=== PATIENT | female | born 1935 | race Caucasian/White ===

== ENCOUNTER 2016-09-05 08:38 | Day surgery (SDC) | payer MEDICARE ==
[~2016-09-05] VITALS: Ht 149.9 cm; Wt 55.0 kg
[2016-09-05 11:58] LABS: BASOPHILS 0.5 % (0-2); EOSINOPHILS 0.7 % (0-7); HEMATOCRIT 42.5 % (36.0-48.0); HEMOGLOBIN 13.9 g/dL (12-16); IMMATURE GRANULOCYTES 0.2 % (0-5); LYMPHOCYTES 36.7 % (15-50); MCH 29.6 pg (26.0-34.0); MCHC 32.7 g/dL (31.0-37.0); MCV 90.4 fL (80.0-100.0); MEAN PLATELET VOLUME 9.2 fL (7.4-10.4); MONOCYTES 9.5 % (2-11); NEUTROPHILS 52.4 % (40-80); PLATELET COUNT 189 10x3/uL (130-400); RDW 14.5 % (11.5-14.5); WBC 4.1 10x3/uL (4.8-10.8)
[2016-09-05 12:06] VITALS: BP 112/58; Ht 149.9 cm; Wt 55.0 kg
[2016-09-05 12:10] LABS: CALC OSMOLALITY 269 mosm/kg (275-300); CALCIUM 8.8 mg/dL (8.5-10.1); CARBON DIOXIDE 31.7 mmol/L (21.0-32.0); CHLORIDE - SERUM 99 mmol/L (98-107); CREATININE - SERUM 0.5 mg/dL (0.6-1.3); GLUCOSE 84 mg/dL (74-106); POTASSIUM - SERUM 3.7 mmol/L (3.5-5.1); SODIUM 137 mmol/L (136-145); UREA NITROGEN 5 mg/dL (7-18); eGFR NON AFRICAN AMERICAN > 90 mL/min (90-120)
[2016-09-05] MEDS ORDERED: FUROSEMIDE20 MG PO (12:12)
[2016-09-05] MEDS ORDERED: BROMFED-DM COU473 ML PO (12:13)
[2016-09-05] MEDS ORDERED: K-DUR20 MEQ PO (12:13)
[2016-09-05] MEDS ORDERED: PROVENTIL HFA6.7 GM INH (12:14)
--- NOTE | 2016-09-07 15:58 | OP ---
PATIENT NAME: HALINA FLOWER MEDICAL RECORD: [id number] :37 LOCATION:[facility] ADMISSION DATE: SURGEON: GRACE SHEA DO DATE OF OPERATION: 09/05/2016 PROCEDURE: Colonoscopy with endoscopic mucosal resection and snare polypectomy as well as random biopsies. INDICATIONS FOR PROCEDURE: Change in bowel habits, hematochezia, history of colon polyps, occult blood in stools. SCOPE: Olympus video pediatric colonoscope. MEDICATIONS: Propofol 300 mg IV per anesthesia. Withdrawal time greater than 15 minutes. COMPLICATIONS: None. ESTIMATED BLOOD LOSS: Minimal. FINDINGS: Informed consent was given. The patient was made comfortable with the above medication. After reaching an adequate level of sedation by slow IV push, the patient was placed on her left side. A digital rectal examination was performed and showed some small external hemorrhoids and some skin tags. The endoscope was then advanced under direct visualization through the anus to the cecum, with visualization of the appendiceal orifice and ileocecal valve. The scope was then slowly withdrawn and mucosa was carefully examined. The prep was fair to good in the entire colon. A significant amount of time was spent washing and irrigating the bowel for better visualization. In the ascending colon, there was a flat lesion that measures approximately 1 cm in size that was lifted with saline and removed with a hot snare in EMR technique. The polyp was completely removed in 1 piece and retrieved. In the descending colon, a second benign appearing sessile polyp measuring approximately 6 mm in size was removed with a hot snare in 1 piece and completely retrieved. Random biopsies were taken in the colon to rule out microscopic colitis. There was evidence of diverticulosis throughout the entire colon. Severity was mild. In the rectum, retroflexion was performed. The patient had small nonbleeding internal hemorrhoids without bleeding stigmata present. The scope was withdrawn from the patient. The patient tolerated the procedure well and there were no complications. IMPRESSION: 1. Two polyps as described above removed in EMR technique and snare polypectomy. 2. Pandiverticulosis of mild severity. 3. Internal and external hemorrhoids, which is likely the source of hematochezia. PLAN AND RECOMMENDATIONS: 1. Discharge home when recovery parameters are met. 2. High fiber diet. 3. Continue current medications. 4. Consider repeating endoscopy in 3 years for continued surveillance versus no further colonoscopies based on age. 5. Follow up biopsy specimen results. If microscopic colitis is confirmed, OPERATIVE REPORT [id number] HALINA FLOWER this will be treated as indicated, otherwise treat symptomatically. TRANSINT:[id number] Confirmation ID: [id number] DOCUMENT ID: [id number] GRACE SHEA DO at 1558 CC: [id number] DICTATION DATE: 09/05/16 1344 LIGHTING SPECIALIST: 09/05/16 2240 [facility] 09/05/16 [id number] [place] [address]
== END 2016-09-05 14:45 | disposition home or self-care (01) ==
LOC: D.OPS 08:38
PROVIDERS: Anesthesiology
DX: R19.5 Other fecal abnormalities (principal); D12.2 Benign neoplasm of ascending colon; D12.4 Benign neoplasm of descending colon; J44.9 Chronic obstructive pulmonary disease, unspecified; K21.9 Gastro-esophageal reflux disease without esophagitis; Z01.812 Encounter for preprocedural laboratory examination; K64.8 Other hemorrhoids; K64.4 Residual hemorrhoidal skin tags